=== PATIENT | male | born 1975 | race Hispanic/Latino ===

== ENCOUNTER 2017-09-11 10:00 | Outpatient (CLI) | payer OTHER ==
--- NOTE | 2017-09-11 14:00 | MRI ---
MRI LUMBAR SPINE WITHOUT CONTRAST: 09/11/2017 HISTORY: Back pain with sciatica. Right lower extremity radiculopathy. COMPARISON: None. TECHNIQUE: Multiplanar, multisequence MR imaging of the lumbar spine provided without contrast. FINDINGS: Disk desiccation noted at L3-L4, L4-L5, and L5-S1. Sagittal STIR imaging demonstrates no focal area of osseous marrow edema. Assuming five lumbar type vertebral bodies, the conus medullaris terminates at the L1-L2 level. No anterolisthesis or retrolisthesis seen. T12-L1: No significant central canal or neural foraminal stenosis. L1-L2: Mild left-sided facet hypertrophy with no significant central canal or neural foraminal steno sis. L2-L3: No central canal or neural foraminal stenosis. L3-L4: There is mild disk bulge. There is mild bilateral facet hypertrophy. There is no significan t central canal or neural foraminal stenosis. L4-L5: Mild bilateral facet hypertrophy. Minimal disk bulge. No significant central canal stenosis . Mild right neural foraminal stenosis. L5-S1: There is disk space narrowing and disk bulge. No associated central canal stenosis. Mild bi lateral facet hypertrophy with mild bilateral neural foraminal stenosis, left greater than right. Imaged retroperitoneal structures appear grossly unremarkable. IMPRESSION: Multilevel lower lumbar spine disk desiccation with mild disk bulges and multilevel mild facet hypert rophy. No significant central canal stenosis. Mild areas of neural foraminal stenosis noted, as doc umented above. POS: [facility]DY
== END 2017-09-11 10:01 | disposition home or self-care (01) ==
LOC: SCSMRI 10:00
PROVIDERS: ATTEND Family Medicine
DX: M54.41 Lumbago with sciatica, right side (principal); M51.36 Other intervertebral disc degeneration, lumbar region
CPT/HCPCS: 72148